=== PATIENT | female | born 1995 | race Caucasian/White ===

== ENCOUNTER 2020-01-01 20:56 | Emergency (ER) | payer MEDICAID ==
[~2020-01-01] VITALS: Ht 167.6 cm; Wt 79.0 kg
[~2020-01-01 20:56] MED LIST: DIPH1TAB PO; PREN1TAB77 PO
[2020-01-01] MEDS ORDERED: ondansetron/PF 4mg/2ml inj IV ONE (21:15)
[2020-01-01] MEDS ORDERED: normal saline 1000ML IV soln IVB ONE (21:15)
[2020-01-01 21:32] LABS: BASOPHILS # (AUTO) 0.1 X10'3 (0-0.2); BASOPHILS % (AUTO) 0.4 % (0-1); EOSINOPHILS % (AUTO) 0.3 % (0-6); HEMATOCRIT 42.4 % (35.0-45.0); HEMOGLOBIN 14.2 g/dl (12.0-16.0); LYMPHOCYTES # (AUTO) 2.5 X10'3 (1.1-4.8); MEAN CORPUSCULAR HEMOGLOBIN 29.1 PG (27.0-31.0); MEAN CORPUSCULAR HGB CONC 33.5 g/dL (33.0-36.5); MEAN PLATELET VOLUME 8.6 FL (7.4-10.4); MONOCYTES # (AUTO) 0.8 X10'3 (0-0.9); MONOCYTES % (AUTO) 5.5 % (2-12); NEUTROPHILS # (AUTO) 10.7 X10'3 (1.8-7.7); NEUTROPHILS % (AUTO) 75.8 % (42-75); PLATELET COUNT 277 X10'3 (140-440); RED BLOOD COUNT 4.87 X10'6 (4.20-5.60); RED CELL DISTRIBUTION WIDTH 12.9 % (11.5-14.5); WHITE BLOOD COUNT 14.1 X10'3 (4.5-11.0)
[2020-01-01 21:35] LABS: CLARITY,URINE SLIGHTLY CLOUDY (Clear); COLOR,URINE YELLOW (Yellow); GLUCOSE, URINE NEGATIVE (Neg); KETONES,URINE NEGATIVE (Neg); LEUKOCYTE ESTERASE ,URINE TRACE (Neg); NITRITES, URINE NEGATIVE (Neg); OCCULT BLOOD,URINE TRACE-LYSED (Neg); PROTEIN,URINE 30 mg/dl (Neg)
[2020-01-01 21:36] LABS: UA COLLECTION TYPE CLN CATCH MIDSTREAM
[2020-01-01 21:40] LABS: BACTERIA,URINE 3+ /HPF (Neg); RBC,URINE 0-2 /HPF (0-2); SQUAMOUS EPITHELIAL CELL,UR MODERATE /LPF (FEW); WBC,URINE 0-4 /HPF (0-4)
[2020-01-01] MEDS ORDERED: DOXY1TAB3 PO (21:43)
[2020-01-01 21:47] LABS: ALANINE AMINOTRANSFERASE 27 U/L (12-78); ALBUMIN 3.8 G/DL (3.4-5.0); ALKALINE PHOSPHATASE 61 IU/L (46-116); ANION GAP 14 (8-16); ASPARTATE AMINO TRANSFERASE 21 U/L (10-37); BILIRUBIN,TOTAL 0.4 MG/DL (0.1-1.0); BLOOD UREA NITROGEN 8 MG/DL (7-18); BUN/CREATININE RATIO 9.1 (6.6-38.0); CALCIUM 9.3 MG/DL (8.5-10.1); CHLORIDE 103 MMOL/L (99-107); CREATININE 0.88 MG/DL (0.40-0.90); GLUCOSE 98 MG/DL (70-104); POTASSIUM 3.9 MMOL/L (3.5-5.1); SODIUM 139 MMOL/L (135-145); TOTAL CARBON DIOXIDE 22.1 MMOL/L (24-32); TOTAL PROTEIN 7.8 G/DL (6.4-8.2); eGFR 80 ML/MIN
[2020-01-01 22:10] VITALS: BP 125/70
== END 2020-01-01 22:15 | disposition home or self-care (01) ==
LOC: ER 20:56
DX: O21.9 Vomiting of pregnancy, unspecified (principal); Z72.89 Other problems related to lifestyle; Z79.899 Other long term (current) drug therapy; Z88.8 Allergy status to other drugs, medicaments and biological substances; Z3A.08 8 weeks gestation of pregnancy
CPT/HCPCS: 36415; 80053; 81001; 85025; 87088; 96361; 96374; 99283; J2405; J7030

== ENCOUNTER 2020-05-18 17:51 | Emergency (ER) | payer MEDICAID ==
[~2020-05-18] VITALS: Ht 167.6 cm; Wt 84.1 kg
[~2020-05-18 17:51] MED LIST changes: +DOXY1TAB3 PO
[2020-05-18 18:31] VITALS: BP 133/75
[2020-05-18] MEDS ORDERED: AZIT250T83 PO (19:07)
== END 2020-05-18 19:25 | disposition home or self-care (01) ==
LOC: ER 17:51
DX: H92.01 Otalgia, right ear (principal); R50.9 Fever, unspecified; R05 Cough; Z20.828 Contact with and (suspected) exposure to other viral communicable diseases; H66.91 Otitis media, unspecified, right ear; Z72.89 Other problems related to lifestyle; Z88.1 Allergy status to other antibiotic agents; Z79.2 Long term (current) use of antibiotics; Z79.899 Other long term (current) drug therapy
CPT/HCPCS: 36415; 99283

== ENCOUNTER 2022-09-23 09:04 | Emergency (ER) | payer MEDICAID, OTHER ==
[~2022-09-23] VITALS: Ht 165.1 cm; Wt 74.0 kg
--- NOTE | 2022-09-23 11:55 | NUR ---
PT STATES SHE HAD TUBAL LIGATION. URINE HCG CANCELLED. PA AWARE AND CT AWARE
[2022-09-23] MEDS ORDERED: IBUP-1984 PO (13:35)
[2022-09-23] MEDS ORDERED: CYCL-1 PO (13:35)
[2022-09-23 13:59] VITALS: BP 132/84
== END 2022-09-23 14:01 | disposition home or self-care (01) ==
LOC: ER 09:04
DX: M54.2 Cervicalgia (principal); M54.9 Dorsalgia, unspecified; V87.7XXA Person injured in collision between other specified motor vehicles (traffic), initial encounter; J45.909 Unspecified asthma, uncomplicated; Z88.1 Allergy status to other antibiotic agents
CPT/HCPCS: 70450; 72125; 72128; 72131; 99284

== ENCOUNTER 2023-12-16 12:03 | Emergency (ER) | payer MEDICAID ==
[~2023-12-16] VITALS: Ht 165.1 cm; Wt 74.1 kg
[~2023-12-16 12:03] MED LIST changes: +CYCL-1 PO
[2023-12-16] MEDS ORDERED: NO HOME MEDS (13:23)
[2023-12-16] MEDS: diphenhydrAMINE 25mg capsule PO ONE (14:13)
[2023-12-16] MEDS: naproxen sodium 220mg tablet PO ONE (14:13)
[2023-12-16] MEDS: SUMAtriptan 25 MG tablet PO ONE (14:13)
[2023-12-16] MEDS: ondansetron 4mg rapidly disintigrating tab PO ONE (14:13)
[2023-12-16 14:24] LABS: HCG SERUM QL NEGATIVE
[2023-12-16 15:56] VITALS: BP 124/68; PULSE 65; RESP 16; TEMP 98.2; O2SAT 98
== END 2023-12-16 16:02 | disposition home or self-care (01) ==
LOC: ER 12:03
DX: R51.9 Headache, unspecified (principal); R11.10 Vomiting, unspecified; J45.909 Unspecified asthma, uncomplicated; Z98.890 Other specified postprocedural states; Z79.82 Long term (current) use of aspirin; Z88.8 Allergy status to other drugs, medicaments and biological substances
CPT/HCPCS: 36415; 84703; 99284; Q0163

== ENCOUNTER 2024-03-05 07:28 | Emergency (ER) | payer MEDICAID ==
[~2024-03-05] VITALS: Ht 165.1 cm; Wt 72.5 kg
[~2024-03-05 07:28] MED LIST changes: -CYCL-1 PO; -DIPH1TAB PO; -DOXY1TAB3 PO; +NO HOME MEDS; -PREN1TAB77 PO
[2024-03-05 08:02] LABS: BILIRUBIN,URINE NEGATIVE (Neg); CLARITY,URINE SLIGHTLY CLOUDY (Clear); COLOR,URINE YELLOW (Yellow); GLUCOSE, URINE NEGATIVE (Neg); KETONES,URINE NEGATIVE (Neg); LEUKOCYTE ESTERASE ,URINE TRACE (Neg); NITRITES, URINE NEGATIVE (Neg); OCCULT BLOOD,URINE LARGE (Neg); PROTEIN,URINE NEGATIVE (Neg); URINE HCG POSITIVE (NEG); UROBILINOGEN,URINE 0.2 E.U/dL (0.2-1.0)
[2024-03-05 08:03] LABS: UA COLLECTION TYPE NON-SPECIFIED
[2024-03-05 08:10] LABS: BACTERIA,URINE 1+ /HPF (Neg); MUCUS STRANDS NONE SEEN /LPF (Neg); RBC,URINE 50-100 /HPF (0-2); SQUAMOUS EPITHELIAL CELL,UR FEW /LPF (FEW); TRANSITIONAL EPI CELLS,URINE FEW /HPF; WBC CLUMPS,URINE FEW /HPF (NEGATIVE); WBC,URINE 30-50 /HPF (0-4)
[2024-03-05] MEDS ORDERED: CEPH-585 PO (09:34)
[2024-03-05] MEDS: cephalexin 250mg capsule PO ONE (09:34)
[2024-03-05 09:40] VITALS: BP 130/73; PULSE 83; RESP 17; TEMP 98; O2SAT 98
== END 2024-03-05 09:41 | disposition home or self-care (01) ==
LOC: ER 07:28
DX: O02.81 Inappropriate change in quantitative human chorionic gonadotropin (hCG) in early pregnancy (principal); N12 Tubulo-interstitial nephritis, not specified as acute or chronic; G43.909 Migraine, unspecified, not intractable, without status migrainosus; J45.909 Unspecified asthma, uncomplicated; Z88.1 Allergy status to other antibiotic agents; Z98.890 Other specified postprocedural states; Z72.89 Other problems related to lifestyle
CPT/HCPCS: 36415; 81001; 81025; 84702; 87077; 87088; 87186; 99283

== ENCOUNTER 2024-03-11 20:22 | Emergency (ER) | payer MEDICAID ==
[~2024-03-11] VITALS: Ht 165.1 cm; Wt 72.7 kg
[~2024-03-11 20:22] MED LIST changes: +CEPH-585 PO
[2024-03-11 20:50] LABS: BILIRUBIN,URINE NEGATIVE (Neg); CLARITY,URINE CLEAR (Clear); COLOR,URINE STRAW (Yellow); GLUCOSE, URINE NEGATIVE (Neg); KETONES,URINE NEGATIVE (Neg); LEUKOCYTE ESTERASE ,URINE NEGATIVE (Neg); NITRITES, URINE NEGATIVE (Neg); OCCULT BLOOD,URINE LARGE (Neg); PROTEIN,URINE NEGATIVE (Neg); URINE HCG NEGATIVE (NEG); UROBILINOGEN,URINE 0.2 E.U/dL (0.2-1.0)
[2024-03-11 20:58] LABS: UA COLLECTION TYPE CLN CATCH MIDSTREAM
[2024-03-11 21:01] LABS: BACTERIA,URINE FEW /HPF (Neg); RBC,URINE 0-2 /HPF (0-2); SQUAMOUS EPITHELIAL CELL,UR FEW /LPF (FEW); WBC,URINE 0-4 /HPF (0-4)
[2024-03-11 22:01] LABS: BASOPHILS % (AUTO) 0.8 % (0-1); EOSINOPHILS # (AUTO) 0.1 X10'3 (0-0.9); HEMATOCRIT 38.7 % (35.0-45.0); HEMOGLOBIN 12.7 g/dl (12.0-16.0); LYMPHOCYTES # (AUTO) 1.8 X10'3 (1.1-4.8); MEAN CORPUSCULAR HEMOGLOBIN 28.3 PG (27.0-31.0); MEAN CORPUSCULAR HGB CONC 32.9 g/dL (33.0-36.5); MEAN CORPUSCULAR VOLUME 86.2 FL (78-98); MEAN PLATELET VOLUME 8.7 FL (7.4-10.4); MONOCYTES # (AUTO) 0.3 X10'3 (0-0.9); MONOCYTES % (AUTO) 6.6 % (2-12); NEUTROPHILS % (AUTO) 57.6 % (42-75); PLATELET COUNT 303 X10'3 (140-440); RED BLOOD COUNT 4.49 X10'6 (4.20-5.60); RED CELL DISTRIBUTION WIDTH 13.5 % (11.5-14.5); WHITE BLOOD COUNT 5.2 X10'3 (4.5-11.0)
[2024-03-11 22:14] LABS: ALANINE AMINOTRANSFERASE 22 U/L (12-78); ALBUMIN 4.2 G/DL (3.4-5.0); ALBUMIN/GLOBULIN RATIO 1.2 (1.1-1.5); ALKALINE PHOSPHATASE 37 IU/L (46-116); ANION GAP 10 (8-16); ASPARTATE AMINO TRANSFERASE 17 U/L (10-37); BILIRUBIN,TOTAL 0.5 MG/DL (0.1-1.0); BLOOD UREA NITROGEN 7 MG/DL (7-18); BUN/CREATININE RATIO 8.1 (10.0-20.0); CALCIUM 9.3 MG/DL (8.5-10.1); CHLORIDE 106 MMOL/L (99-107); CREATININE 0.86 MG/DL (0.40-0.90); GLUCOSE 99 MG/DL (70-104); LIPASE 39 U/L (16-77); POTASSIUM 4.1 MMOL/L (3.5-5.1); SODIUM 142 MMOL/L (135-145); TOTAL PROTEIN 7.8 G/DL (6.4-8.2); eCRCL 88 ML/MIN; eGFR 79 ML/MIN
[2024-03-11 22:24] LABS: HCG SERUM QL NEGATIVE
[2024-03-11] MEDS ORDERED: SULF1TAB45 PO (23:05)
[2024-03-11] MEDS: sulfamethoxazole/trimethoprim DS (800/160mg) tablet PO ONE (23:29)
[2024-03-11 23:31] VITALS: BP 112/74; PULSE 75; RESP 16; TEMP 98.4; O2SAT 99
== END 2024-03-11 23:33 | disposition home or self-care (01) ==
LOC: ER 20:22
DX: R30.0 Dysuria (principal); R31.9 Hematuria, unspecified; M54.9 Dorsalgia, unspecified; G43.909 Migraine, unspecified, not intractable, without status migrainosus; J45.909 Unspecified asthma, uncomplicated; Z88.1 Allergy status to other antibiotic agents; Z79.1 Long term (current) use of non-steroidal anti-inflammatories (NSAID); Z79.899 Other long term (current) drug therapy; Z98.890 Other specified postprocedural states; Z72.89 Other problems related to lifestyle
CPT/HCPCS: 36415; 74176; 80053; 81001; 81025; 83690; 84703; 85025; 99284